=== PATIENT | male | born 1990 | race Hispanic/Latino ===

== ENCOUNTER 2023-12-05 14:40 | Emergency (ER) | payer OTHER ==
[~2023-12-05] VITALS: Ht 165.1 cm; Wt 112.0 kg
[2023-12-05 16:03] VITALS: BP 156/100; PULSE 74; RESP 16
== END 2023-12-05 16:50 | disposition left against medical advice (07) ==
LOC: EDH 14:40
DX: R21 Rash and other nonspecific skin eruption (principal); Z53.21 Procedure and treatment not carried out due to patient leaving prior to being seen by health care provider